=== PATIENT | female | born 1965 | race Caucasian/White ===

== ENCOUNTER 2017-06-09 02:57 | Emergency (ER) | payer MEDICAID ==
[~2017-06-09] VITALS: Ht 157.5 cm; Wt 110.5 kg
[~2017-06-09 02:57] MED LIST: ALBU18HF2 INH; BENZ-16 PO; GUAI10SY2 PO
[2017-06-09] MEDS ORDERED: normal saline 1000ml 1,000 ML IV ONE ×2 (03:08→04:45)
[2017-06-09 03:30] LABS: BASOPHILS % (AUTO) 0.4 % (0-1); EOSINOPHILS # (AUTO) 0.1 X10'3 (0-0.9); EOSINOPHILS % (AUTO) 0.9 % (0-6); HEMATOCRIT 32.8 % (35.0-45.0); LYMPHOCYTES # (AUTO) 0.6 X10'3 (1.1-4.8); MEAN CORPUSCULAR HEMOGLOBIN 28.1 PG (27.0-31.0); MEAN CORPUSCULAR HGB CONC 33.6 % (33.0-36.5); MEAN CORPUSCULAR VOLUME 83.6 FL (78-98); MEAN PLATELET VOLUME 10.2 FL (7.4-10.4); MONOCYTES # (AUTO) 0.4 X10'3 (0-0.9); MONOCYTES % (AUTO) 6.1 % (2-12); NEUTROPHILS # (AUTO) 5.6 X10'3 (1.8-7.7); NEUTROPHILS % (AUTO) 83.6 % (42-75); PLATELET COUNT 142 X10'3 (140-440); RED BLOOD COUNT 3.92 X10'6 (4.20-5.60); RED CELL DISTRIBUTION WIDTH 15.4 % (11.5-14.5); WHITE BLOOD COUNT 6.7 X10'3 (4.5-11.0)
[2017-06-09] MEDS ORDERED: insulin regular, human 10 units/0.1 ml syringe IV STA (03:30)
[2017-06-09 03:32] LABS: CLARITY,URINE Clear (Clear); COLOR,URINE Yellow (Yellow); GLUCOSE, URINE >=1000 mg/dl (Neg); KETONES,URINE Negative (Neg); LEUKOCYTE ESTERASE ,URINE Negative (Neg); NITRITES, URINE Negative (Neg); OCCULT BLOOD,URINE Negative (Neg); PROTEIN,URINE Trace mg/dl (Neg)
[2017-06-09 03:46] LABS: UA COLLECTION TYPE CLN CATCH MIDSTREAM
[2017-06-09 03:47] LABS: BACTERIA,URINE NONE SEEN /HPF (Neg); RBC,URINE NONE SEEN /HPF (0-2); SQUAMOUS EPITHELIAL CELL,UR FEW /LPF (FEW); WBC,URINE NONE SEEN /HPF (0-4)
[2017-06-09 03:59] LABS: ANION GAP 15 (8-16); CHLORIDE 97 MMOL/L (99-107); CREATININE 1.14 MG/DL (0.40-0.90); POTASSIUM 5.5 MMOL/L (3.5-5.1); SODIUM 135 MMOL/L (135-145); TOTAL CARBON DIOXIDE 23.2 MMOL/L (24-32); eGFR 50 ML/MIN
[2017-06-09 04:05] LABS: PARTIAL THROMBOPLASTIN TIME 23 SECONDS (22-32); PROTHROMBIN TIME 10.4 SECONDS (9.0-12.0)
[2017-06-09 04:19] LABS: ALANINE AMINOTRANSFERASE 129 U/L (12-78); ALBUMIN 3.3 G/DL (3.4-5.0); ALBUMIN/GLOBULIN RATIO 0.8 (1.1-1.5); ALKALINE PHOSPHATASE 119 IU/L (46-116); ASPARTATE AMINO TRANSFERASE 100 U/L (10-37); BILIRUBIN,TOTAL 0.6 MG/DL (0.1-1.0); BLOOD UREA NITROGEN 25 MG/DL (7-18); BUN/CREATININE RATIO 21.9 (6.6-38.0); CREATINE KINASE 102 U/L (26-192); MAGNESIUM 1.5 MG/DL (1.5-2.4); TOTAL PROTEIN 7.5 G/DL (6.4-8.2)
[2017-06-09 04:22] LABS: GLUCOSE 530 MG/DL (70-104)
[2017-06-09] MEDS ORDERED: Insulin Detemir pen SQ ONE (04:30)
[2017-06-09] MEDS ORDERED: normal saline 1000ML IV soln IVB ONE (04:30)
[2017-06-09] MEDS ORDERED: insulin regular, human 10 units/0.1 ml syringe IV ONE (04:30)
[2017-06-09] MEDS ORDERED: NPH, human insulin isophane inj. SQ ONE (04:30)
[2017-06-09] MEDS ORDERED: furosemide 20MG tablet PO ONE (08:40)
[2017-06-09 08:57] VITALS: BP 138/92
[2017-06-09] MEDS ORDERED: SIMV80TA2 PO (22:07)
[2017-06-09] MEDS ORDERED: ASPI81TA52 PO (22:07)
[2017-06-09] MEDS ORDERED: METF500T PO (22:07)
[2017-06-09] MEDS ORDERED: LEVO112T52 PO (22:07)
[2017-06-09] MEDS ORDERED: GLIP10TA11 PO (22:07)
[2017-06-09] MEDS ORDERED: INSU100I31 SQ (22:07)
[2017-06-09] MEDS ORDERED: CITA40TA22 PO (22:07)
[2017-06-09] MEDS ORDERED: ALOG25TA2 PO (22:07)
[2017-06-09] MEDS ORDERED: METO25TA6 PO (22:07)
[2017-06-09] MEDS ORDERED: LOSA25TA96 PO (22:07)
== END 2017-06-09 09:34 | disposition home or self-care (01) ==
LOC: ER 02:59
DX: I47.1 Supraventricular tachycardia (principal); E11.65 Type 2 diabetes mellitus with hyperglycemia; I38 Endocarditis, valve unspecified; I49.9 Cardiac arrhythmia, unspecified; E78.00 Pure hypercholesterolemia, unspecified; I10 Essential (primary) hypertension; Z79.899 Other long term (current) drug therapy
CPT/HCPCS: 36415; 71045; 80053; 81001; 82550; 82948; 83735; 83874; 83880; 84484; 85025; 85610; 85730; 93306; 96361; 96374; 96376; 99285; A4315; J7030

== ENCOUNTER 2017-06-09 17:54 | Inpatient (IN) | payer MEDICAID ==
[~2017-06-09] VITALS: Ht 162.6 cm; Wt 110.0 kg
[2017-06-09 18:51] LABS: BASOPHILS % (AUTO) 0.1 % (0-1); EOSINOPHILS # (AUTO) 0.1 X10'3 (0-0.9); EOSINOPHILS % (AUTO) 0.7 % (0-6); HEMATOCRIT 32.5 % (35.0-45.0); HEMOGLOBIN 11.2 g/dl (12.0-16.0); LYMPHOCYTES # (AUTO) 0.6 X10'3 (1.1-4.8); LYMPHOCYTES % (AUTO) 7.5 % (21-51); MEAN CORPUSCULAR HEMOGLOBIN 28.2 PG (27.0-31.0); MEAN CORPUSCULAR HGB CONC 34.3 % (33.0-36.5); MEAN CORPUSCULAR VOLUME 82.3 FL (78-98); MEAN PLATELET VOLUME 10.1 FL (7.4-10.4); MONOCYTES # (AUTO) 0.5 X10'3 (0-0.9); NEUTROPHILS # (AUTO) 6.4 X10'3 (1.8-7.7); NEUTROPHILS % (AUTO) 85.7 % (42-75); PLATELET COUNT 146 X10'3 (140-440); RED BLOOD COUNT 3.95 X10'6 (4.20-5.60); RED CELL DISTRIBUTION WIDTH 15.2 % (11.5-14.5); WHITE BLOOD COUNT 7.5 X10'3 (4.5-11.0)
[2017-06-09] MEDS ORDERED: ipratropium/albuterol 3ml nebule IH ONE (19:00)
[2017-06-09] MEDS ORDERED: albuterol 2.5 MG/3 ML nebule NEB ONE (19:00)
[2017-06-09] MEDS ORDERED: ipratropium 0.5 MG/2.5ML nebule IH ONE (19:00)
[2017-06-09 19:03] LABS: PARTIAL THROMBOPLASTIN TIME 25 SECONDS (22-32); PROTHROMBIN TIME 10.7 SECONDS (9.0-12.0)
[2017-06-09 19:07] LABS: ALANINE AMINOTRANSFERASE 114 U/L (12-78); ALBUMIN 3.5 G/DL (3.4-5.0); ALBUMIN/GLOBULIN RATIO 0.8 (1.1-1.5); ALKALINE PHOSPHATASE 123 IU/L (46-116); ANION GAP 11 (8-16); ASPARTATE AMINO TRANSFERASE 69 U/L (10-37); BILIRUBIN,TOTAL 0.7 MG/DL (0.1-1.0); BLOOD UREA NITROGEN 21 MG/DL (7-18); BUN/CREATININE RATIO 17.5 (6.6-38.0); CALCIUM 8.1 MG/DL (8.5-10.1); CHLORIDE 97 MMOL/L (99-107); GLUCOSE 431 MG/DL (70-104); POTASSIUM 5.6 MMOL/L (3.5-5.1); SODIUM 132 MMOL/L (135-145); TOTAL CARBON DIOXIDE 24.3 MMOL/L (24-32); TOTAL PROTEIN 7.9 G/DL (6.4-8.2); eGFR 47 ML/MIN
[2017-06-09] MEDS ORDERED: albuterol 2.5 MG/3 ML nebule CONTNEB PRN (20:15)
[2017-06-09] MEDS ORDERED: nitroGLYCERIN 0.4mg SUBLingual tab SL PRN (20:20)
[2017-06-09] MEDS ORDERED: furosemide 10 MG/1 ML 10ml inj IV ONE (20:20)
[2017-06-09] MEDS ORDERED: METO25TA6 PO (22:07)
[2017-06-09] MEDS ORDERED: INSU100I31 SQ (22:07)
[2017-06-09] MEDS ORDERED: GLIP10TA11 PO (22:07)
[2017-06-09] MEDS ORDERED: LOSA25TA96 PO (22:07)
[2017-06-09] MEDS ORDERED: CITA40TA22 PO (22:07)
[2017-06-09] MEDS ORDERED: LEVO112T52 PO (22:07)
[2017-06-09] MEDS ORDERED: ASPI81TA52 PO (22:07)
[2017-06-09] MEDS ORDERED: METF500T PO (22:07)
[2017-06-09] MEDS ORDERED: ALOG25TA2 PO (22:07)
[2017-06-09] MEDS ORDERED: SIMV80TA2 PO (22:07)
[2017-06-10] MEDS ORDERED: mag hydrox/Alum hydrox/simeth 30ml oral suspension PO PRN (03:15)
[2017-06-10] MEDS ORDERED: magnesium hydroxide 30ml (MOM) UD suspension PO PRN (03:15)
[2017-06-10] MEDS ORDERED: acetaminophen 325mg tablet PO PRN (03:15)
[2017-06-10] MEDS ORDERED: ondansetron/PF 4mg/2ml inj IV PRN (03:15)
[2017-06-10 04:02] LABS: HEMOGLOBIN A1C 9.8 % (4.5-6.2)
[2017-06-10] MEDS: levoTHYROXINE 112mcg tablet PO SCH (07:05)
[2017-06-10] MEDS ORDERED: pneumococcal 23-VAL P-sac vacc 25 mcg/0.5ml vial IMVAC ONE (08:00)
[2017-06-10] MEDS ORDERED: glipizide 5mg tablet PO SCH (08:00)
[2017-06-10] MEDS: citalopram 20mg tablet PO SCH (08:32)
[2017-06-10] MEDS: losartan 25mg tablet PO SCH (08:33)
[2017-06-10] MEDS: aspirin 81mg tablet.DR PO SCH (08:33)
[2017-06-10] MEDS: metoprolol tartrate 25mg tablet PO SCH ×2 (08:34→20:33)
[2017-06-10] MEDS: heparin, porcine 5000 units/ml vial SQ SCH ×2 (08:36→20:34)
[2017-06-10] MEDS: furosemide 10 MG/1 ML 10ml inj IV SCH ×2 (08:40→20:34)
[2017-06-10] MEDS ORDERED: dextrose ORAL solution 15 GM/59 ML bottle PO PRN ×2 (14:30)
[2017-06-10] MEDS ORDERED: glucagon, human recombinant 1mg kit SUBCUT PRN (14:30)
[2017-06-10] MEDS ORDERED: MESSAGE TO PHARMACY PO ONE (14:30)
[2017-06-10] MEDS ORDERED: dextrose 50%-water 50ml dispensing syringe IV PRN ×2 (14:30)
[2017-06-10 15:00] VITALS: BP 145/84
[2017-06-10] MEDS: albuterol 2.5 MG/3 ML nebule NEB PRN ×2 (16:37→20:28)
[2017-06-10] MEDS: LORazepam 0.5 MG tablet PO PRN (16:58)
[2017-06-10 18:30] VITALS: BP 133/83
[2017-06-10] MEDS: insulin Lispro (HumaLOG) vial - multi-dose SQ SCH ×2 (19:41→21:44)
[2017-06-10] MEDS: atorvastatin 20mg tablet PO SCH (20:33)
[2017-06-10] MEDS ORDERED: insulin glargine (Lantus) pen - multi-dose SQ SCH (21:00)
[2017-06-10] MEDS ORDERED: diltiazem 5mg/ml 5ml inj. IV STA (21:26)
[2017-06-10] MEDS: diltiazem 30mg tablet PO SCH (21:38)
[2017-06-10] MEDS: insulin glargine (Lantus) pen - multi-dose SQ SCH (21:46)
[2017-06-10 22:30] VITALS: BP 111/71
[2017-06-11 02:00] VITALS: BP 109/67
[2017-06-11] MEDS: diltiazem 30mg tablet PO SCH ×4 (02:31→20:16)
[2017-06-11 05:16] LABS: BASOPHILS % (AUTO) 0.3 % (0-1); EOSINOPHILS # (AUTO) 0.2 X10'3 (0-0.9); EOSINOPHILS % (AUTO) 2.9 % (0-6); HEMATOCRIT 33.6 % (35.0-45.0); HEMOGLOBIN 11.5 g/dl (12.0-16.0); LYMPHOCYTES # (AUTO) 1.4 X10'3 (1.1-4.8); LYMPHOCYTES % (AUTO) 24.6 % (21-51); MEAN CORPUSCULAR HEMOGLOBIN 28.4 PG (27.0-31.0); MEAN CORPUSCULAR HGB CONC 34.4 % (33.0-36.5); MEAN CORPUSCULAR VOLUME 82.6 FL (78-98); MEAN PLATELET VOLUME 9.7 FL (7.4-10.4); MONOCYTES # (AUTO) 0.6 X10'3 (0-0.9); MONOCYTES % (AUTO) 10.6 % (2-12); NEUTROPHILS # (AUTO) 3.6 X10'3 (1.8-7.7); NEUTROPHILS % (AUTO) 61.6 % (42-75); PLATELET COUNT 146 X10'3 (140-440); RED BLOOD COUNT 4.07 X10'6 (4.20-5.60); RED CELL DISTRIBUTION WIDTH 15.5 % (11.5-14.5); WHITE BLOOD COUNT 5.9 X10'3 (4.5-11.0)
[2017-06-11 05:27] LABS: ALANINE AMINOTRANSFERASE 87 U/L (12-78); ALBUMIN 3.2 G/DL (3.4-5.0); ALBUMIN/GLOBULIN RATIO 0.7 (1.1-1.5); ALKALINE PHOSPHATASE 100 IU/L (46-116); ANION GAP 8 (8-16); ASPARTATE AMINO TRANSFERASE 45 U/L (10-37); BILIRUBIN,TOTAL 0.6 MG/DL (0.1-1.0); BLOOD UREA NITROGEN 29 MG/DL (7-18); BUN/CREATININE RATIO 23.4 (6.6-38.0); CALCIUM 8.6 MG/DL (8.5-10.1); CHLORIDE 99 MMOL/L (99-107); CHOL/HDL RATIO 3.4 (0.00-4.99); CHOLESTEROL 162 MG/DL (0-200); CREATININE 1.24 MG/DL (0.40-0.90); GLUCOSE 183 MG/DL (70-104); HDL CHOLESTEROL 47 MG/DL (35-60); LDL CHOLESTEROL 97 MG/DL (50-100); POTASSIUM 4.2 MMOL/L (3.5-5.1); SODIUM 140 MMOL/L (135-145); TOTAL CARBON DIOXIDE 33.4 MMOL/L (24-32); TOTAL PROTEIN 7.5 G/DL (6.4-8.2); TRIGLYCERIDES 134 MG/DL (20-135); eGFR 45 ML/MIN
[2017-06-11 06:00] VITALS: BP 102/67
[2017-06-11] MEDS: citalopram 20mg tablet PO SCH (07:34)
[2017-06-11] MEDS: levoTHYROXINE 112mcg tablet PO SCH (07:34)
[2017-06-11] MEDS: aspirin 81mg tablet.DR PO SCH (07:34)
[2017-06-11] MEDS: metoprolol tartrate 25mg tablet PO SCH ×2 (07:34→20:00)
[2017-06-11] MEDS: losartan 25mg tablet PO SCH (07:34)
[2017-06-11] MEDS: furosemide 10 MG/1 ML 10ml inj IV SCH ×2 (07:34→20:16)
[2017-06-11] MEDS: heparin, porcine 5000 units/ml vial SQ SCH ×2 (07:35→20:15)
[2017-06-11 11:00] VITALS: BP 112/75
[2017-06-11] MEDS: insulin Lispro (HumaLOG) vial - multi-dose SQ SCH (13:14)
[2017-06-11 15:00] VITALS: BP 107/69
[2017-06-11] MEDS ORDERED: HYDROcodone/acetaminophen 5mg/325mg tablet PO PRN (16:00)
[2017-06-11] MEDS: HYDROcodone/acetaminophen 5mg/325mg tablet PO PRN (16:39)
[2017-06-11 18:00] VITALS: BP 103/45
[2017-06-11] MEDS: atorvastatin 20mg tablet PO SCH (20:17)
[2017-06-11] MEDS: insulin glargine (Lantus) pen - multi-dose SQ SCH (20:19)
[2017-06-11] MEDS: LORazepam 0.5 MG tablet PO PRN (20:21)
[2017-06-11 22:00] VITALS: BP 104/57
[2017-06-12] VITALS (16 sets, daily range): BP systolic 91–124; BP diastolic 43–79
[2017-06-12] MEDS: diltiazem 30mg tablet PO SCH ×3 (02:20→14:07)
[2017-06-12 05:40] LABS: BASOPHILS % (AUTO) 0.4 % (0-1); EOSINOPHILS # (AUTO) 0.3 X10'3 (0-0.9); EOSINOPHILS % (AUTO) 4.5 % (0-6); HEMATOCRIT 34.7 % (35.0-45.0); HEMOGLOBIN 11.7 g/dl (12.0-16.0); LYMPHOCYTES # (AUTO) 1.7 X10'3 (1.1-4.8); LYMPHOCYTES % (AUTO) 27.4 % (21-51); MEAN CORPUSCULAR HEMOGLOBIN 27.9 PG (27.0-31.0); MEAN CORPUSCULAR HGB CONC 33.7 % (33.0-36.5); MEAN CORPUSCULAR VOLUME 82.7 FL (78-98); MEAN PLATELET VOLUME 9.3 FL (7.4-10.4); MONOCYTES # (AUTO) 0.7 X10'3 (0-0.9); NEUTROPHILS # (AUTO) 3.5 X10'3 (1.8-7.7); NEUTROPHILS % (AUTO) 56.7 % (42-75); PLATELET COUNT 165 X10'3 (140-440); WHITE BLOOD COUNT 6.1 X10'3 (4.5-11.0)
[2017-06-12 05:44] LABS: ALANINE AMINOTRANSFERASE 84 U/L (12-78); ALBUMIN 3.2 G/DL (3.4-5.0); ALBUMIN/GLOBULIN RATIO 0.7 (1.1-1.5); ALKALINE PHOSPHATASE 95 IU/L (46-116); ANION GAP 8 (8-16); ASPARTATE AMINO TRANSFERASE 43 U/L (10-37); BILIRUBIN,TOTAL 0.6 MG/DL (0.1-1.0); BLOOD UREA NITROGEN 38 MG/DL (7-18); BUN/CREATININE RATIO 31.9 (6.6-38.0); CALCIUM 8.6 MG/DL (8.5-10.1); CHLORIDE 99 MMOL/L (99-107); CREATININE 1.19 MG/DL (0.40-0.90); GLUCOSE 169 MG/DL (70-104); SODIUM 140 MMOL/L (135-145); TOTAL CARBON DIOXIDE 32.9 MMOL/L (24-32); TOTAL PROTEIN 7.6 G/DL (6.4-8.2); eGFR 47 ML/MIN
[2017-06-12] MEDS ORDERED: midazolam 2 mg/2 ml injection ONE (06:08)
[2017-06-12] MEDS ORDERED: fentaNYL/PF 50MCG/1 ML 2ML syringe ONE (06:08)
[2017-06-12] MEDS ORDERED: LIDOcaine 1%/PF (10mg/ml) 5ml vial ONE (06:09)
[2017-06-12] MEDS ORDERED: IOHEXOL 350 MG/ML 150 ML injection IV ONE (06:09)
[2017-06-12] MEDS: levoTHYROXINE 112mcg tablet PO SCH (07:57)
[2017-06-12] MEDS: heparin, porcine 5000 units/ml vial SQ SCH (07:57)
[2017-06-12] MEDS: aspirin 81mg tablet.DR PO SCH (07:59)
[2017-06-12] MEDS: citalopram 20mg tablet PO SCH (08:00)
[2017-06-12] MEDS: metoprolol tartrate 25mg tablet PO SCH ×2 (08:00→19:08)
[2017-06-12] MEDS: furosemide 10 MG/1 ML 10ml inj IV SCH (08:00)
[2017-06-12] MEDS: losartan 25mg tablet PO SCH (08:02)
[2017-06-12] MEDS: insulin Lispro (HumaLOG) vial - multi-dose SQ SCH ×3 (10:16→21:48)
[2017-06-12] MEDS ORDERED: digoxin 250mcg/ml 2ml ampule IV ONE (14:20)
[2017-06-12] MEDS ORDERED: diltiazem-D5W 125mg/125ml 125 ML IV SCH (17:20)
[2017-06-12] MEDS ORDERED: amiodarone 150mg/dext, iso-os 100 ML IV ONE (18:50)
[2017-06-12] MEDS: apixaban 5mg tablet PO SCH (20:00)
[2017-06-12] MEDS: atorvastatin 20mg tablet PO SCH (20:32)
[2017-06-12] MEDS: amiodarone/D5 450MG/250ML BAG 250 ML IV SCH (20:33)
[2017-06-12] MEDS: insulin glargine (Lantus) pen - multi-dose SQ SCH (21:48)
[2017-06-12] MEDS ORDERED: normal saline 500ml IV soln 500 ML IV ONE (23:25)
[2017-06-13] VITALS (10 sets, daily range): BP systolic 102–139; BP diastolic 61–105
[2017-06-13] MEDS ORDERED: diltiazem 5mg/ml 5ml inj. IV ONE (01:40)
[2017-06-13] MEDS: amiodarone/D5 450MG/250ML BAG 250 ML IV SCH (04:09)
[2017-06-13] MEDS: LORazepam 0.5 MG tablet PO PRN (04:11)
[2017-06-13 05:38] LABS: BASOPHILS % (AUTO) 0.5 % (0-1); EOSINOPHILS # (AUTO) 0.2 X10'3 (0-0.9); EOSINOPHILS % (AUTO) 2.9 % (0-6); HEMATOCRIT 40.1 % (35.0-45.0); HEMOGLOBIN 13.5 g/dl (12.0-16.0); LYMPHOCYTES # (AUTO) 2.2 X10'3 (1.1-4.8); LYMPHOCYTES % (AUTO) 26.9 % (21-51); MEAN CORPUSCULAR HEMOGLOBIN 27.7 PG (27.0-31.0); MEAN CORPUSCULAR HGB CONC 33.7 % (33.0-36.5); MEAN CORPUSCULAR VOLUME 82.1 FL (78-98); MEAN PLATELET VOLUME 10.1 FL (7.4-10.4); MONOCYTES # (AUTO) 0.6 X10'3 (0-0.9); MONOCYTES % (AUTO) 7.2 % (2-12); NEUTROPHILS # (AUTO) 5.1 X10'3 (1.8-7.7); NEUTROPHILS % (AUTO) 62.5 % (42-75); PLATELET COUNT 192 X10'3 (140-440); RED BLOOD COUNT 4.88 X10'6 (4.20-5.60); RED CELL DISTRIBUTION WIDTH 15.1 % (11.5-14.5); WHITE BLOOD COUNT 8.1 X10'3 (4.5-11.0)
[2017-06-13 05:55] LABS: ALANINE AMINOTRANSFERASE 69 U/L (12-78); ALBUMIN 3.2 G/DL (3.4-5.0); ALBUMIN/GLOBULIN RATIO 0.6 (1.1-1.5); ALKALINE PHOSPHATASE 96 IU/L (46-116); ANION GAP 10 (8-16); ASPARTATE AMINO TRANSFERASE 33 U/L (10-37); BILIRUBIN,TOTAL 0.5 MG/DL (0.1-1.0); BLOOD UREA NITROGEN 43 MG/DL (7-18); BUN/CREATININE RATIO 37.7 (6.6-38.0); CALCIUM 8.8 MG/DL (8.5-10.1); CHLORIDE 98 MMOL/L (99-107); CREATININE 1.14 MG/DL (0.40-0.90); GLUCOSE 299 MG/DL (70-104); POTASSIUM 4.3 MMOL/L (3.5-5.1); SODIUM 136 MMOL/L (135-145); TOTAL CARBON DIOXIDE 28.3 MMOL/L (24-32); TOTAL PROTEIN 8.5 G/DL (6.4-8.2); eGFR 50 ML/MIN
[2017-06-13] MEDS: apixaban 5mg tablet PO SCH ×2 (07:28→19:18)
[2017-06-13] MEDS: aspirin 81mg tablet.DR PO SCH (07:29)
[2017-06-13] MEDS: levoTHYROXINE 112mcg tablet PO SCH (07:29)
[2017-06-13] MEDS: metoprolol tartrate 25mg tablet PO SCH (07:29)
[2017-06-13] MEDS: citalopram 20mg tablet PO SCH (07:29)
[2017-06-13] MEDS ORDERED: metoprolol tartrate 1mg/ml inj IV ONE (07:55)
[2017-06-13] MEDS: insulin Lispro (HumaLOG) vial - multi-dose SQ SCH ×3 (08:41→19:21)
[2017-06-13] MEDS ORDERED: digoxin 250mcg/ml 2ml ampule IV ONE (10:50)
[2017-06-13] MEDS: diltiazem 30mg tablet PO SCH ×2 (13:15→19:17)
[2017-06-13] MEDS: HYDROcodone/acetaminophen 5mg/325mg tablet PO PRN (19:23)
[2017-06-13] MEDS: carVEDilol 12.5mg tablet PO SCH (21:45)
[2017-06-13] MEDS: atorvastatin 20mg tablet PO SCH (21:51)
[2017-06-13] MEDS: insulin glargine (Lantus) pen - multi-dose SQ SCH (21:55)
[2017-06-14] MEDS: diltiazem 30mg tablet PO SCH (02:50)
[2017-06-14 03:00] VITALS: BP 137/77
[2017-06-14 05:36] LABS: BASOPHILS % (AUTO) 0.4 % (0-1); EOSINOPHILS # (AUTO) 0.2 X10'3 (0-0.9); EOSINOPHILS % (AUTO) 2.6 % (0-6); HEMATOCRIT 33.9 % (35.0-45.0); HEMOGLOBIN 11.5 g/dl (12.0-16.0); LYMPHOCYTES # (AUTO) 1.8 X10'3 (1.1-4.8); LYMPHOCYTES % (AUTO) 21.6 % (21-51); MEAN CORPUSCULAR HGB CONC 33.9 % (33.0-36.5); MEAN CORPUSCULAR VOLUME 82.8 FL (78-98); MEAN PLATELET VOLUME 9.7 FL (7.4-10.4); MONOCYTES # (AUTO) 0.6 X10'3 (0-0.9); MONOCYTES % (AUTO) 6.9 % (2-12); NEUTROPHILS # (AUTO) 5.8 X10'3 (1.8-7.7); NEUTROPHILS % (AUTO) 68.5 % (42-75); PLATELET COUNT 172 X10'3 (140-440); RED CELL DISTRIBUTION WIDTH 15.1 % (11.5-14.5); WHITE BLOOD COUNT 8.5 X10'3 (4.5-11.0)
[2017-06-14 06:00] VITALS: BP 123/70
[2017-06-14 06:20] LABS: ALANINE AMINOTRANSFERASE 57 U/L (12-78); ALBUMIN/GLOBULIN RATIO 0.7 (1.1-1.5); ALKALINE PHOSPHATASE 82 IU/L (46-116); ANION GAP 8 (8-16); ASPARTATE AMINO TRANSFERASE 28 U/L (10-37); BILIRUBIN,TOTAL 0.5 MG/DL (0.1-1.0); BLOOD UREA NITROGEN 40 MG/DL (7-18); BUN/CREATININE RATIO 33.9 (6.6-38.0); CALCIUM 8.5 MG/DL (8.5-10.1); CHLORIDE 99 MMOL/L (99-107); CREATININE 1.18 MG/DL (0.40-0.90); GLUCOSE 217 MG/DL (70-104); POTASSIUM 4.6 MMOL/L (3.5-5.1); SODIUM 137 MMOL/L (135-145); TOTAL CARBON DIOXIDE 30.2 MMOL/L (24-32); TOTAL PROTEIN 7.4 G/DL (6.4-8.2); eGFR 48 ML/MIN
[2017-06-14] MEDS: levoTHYROXINE 112mcg tablet PO SCH (07:09)
[2017-06-14] MEDS: aspirin 81mg tablet.DR PO SCH (07:10)
[2017-06-14] MEDS: citalopram 20mg tablet PO SCH (07:10)
[2017-06-14] MEDS: apixaban 5mg tablet PO SCH ×2 (07:10→20:38)
[2017-06-14] MEDS: carVEDilol 12.5mg tablet PO SCH ×2 (07:10→20:36)
[2017-06-14] MEDS ORDERED: losartan 25mg tablet PO SCH ×2 (08:00→21:00)
[2017-06-14] MEDS ORDERED: amiodarone 150mg/dext, iso-os 100 ML IV ONE ×2 (08:20)
[2017-06-14] MEDS: insulin Lispro (HumaLOG) vial - multi-dose SQ SCH ×3 (08:57→23:00)
[2017-06-14] MEDS: amiodarone 200mg tablet PO SCH ×3 (09:05→20:36)
[2017-06-14] MEDS: furosemide 20MG tablet PO SCH (10:26)
[2017-06-14 11:00] VITALS: BP 136/80
[2017-06-14] MEDS ORDERED: amiodarone 200mg tablet PO ONE (13:45)
[2017-06-14 15:00] VITALS: BP 125/84
[2017-06-14] MEDS ORDERED: atorvastatin 10mg tablet PO SCH (17:37)
[2017-06-14] MEDS ORDERED: amiodarone/D5 450MG/250ML BAG 250 ML IV SCH (17:40)
[2017-06-14 18:00] VITALS: BP 123/74
[2017-06-14 22:00] VITALS: BP 117/64
[2017-06-14] MEDS: insulin glargine (Lantus) pen - multi-dose SQ SCH (22:58)
[2017-06-15 02:00] VITALS: BP 117/66
[2017-06-15 05:48] LABS: BASOPHILS % (AUTO) 0.3 % (0-1); EOSINOPHILS # (AUTO) 0.3 X10'3 (0-0.9); EOSINOPHILS % (AUTO) 3.7 % (0-6); HEMATOCRIT 33.8 % (35.0-45.0); HEMOGLOBIN 11.4 g/dl (12.0-16.0); LYMPHOCYTES # (AUTO) 1.8 X10'3 (1.1-4.8); LYMPHOCYTES % (AUTO) 23.6 % (21-51); MEAN CORPUSCULAR HGB CONC 33.8 % (33.0-36.5); MEAN CORPUSCULAR VOLUME 82.9 FL (78-98); MEAN PLATELET VOLUME 9.6 FL (7.4-10.4); MONOCYTES # (AUTO) 0.6 X10'3 (0-0.9); MONOCYTES % (AUTO) 7.8 % (2-12); NEUTROPHILS % (AUTO) 64.6 % (42-75); PLATELET COUNT 162 X10'3 (140-440); RED BLOOD COUNT 4.08 X10'6 (4.20-5.60); RED CELL DISTRIBUTION WIDTH 15.3 % (11.5-14.5); WHITE BLOOD COUNT 7.8 X10'3 (4.5-11.0)
[2017-06-15 06:00] VITALS: BP 114/53
[2017-06-15 06:16] LABS: ALANINE AMINOTRANSFERASE 51 U/L (12-78); ALBUMIN 2.9 G/DL (3.4-5.0); ALBUMIN/GLOBULIN RATIO 0.6 (1.1-1.5); ALKALINE PHOSPHATASE 87 IU/L (46-116); ANION GAP 6 (8-16); ASPARTATE AMINO TRANSFERASE 29 U/L (10-37); BILIRUBIN,TOTAL 0.5 MG/DL (0.1-1.0); BLOOD UREA NITROGEN 26 MG/DL (7-18); BUN/CREATININE RATIO 24.8 (6.6-38.0); CALCIUM 8.5 MG/DL (8.5-10.1); CHLORIDE 101 MMOL/L (99-107); CREATININE 1.05 MG/DL (0.40-0.90); GLUCOSE 194 MG/DL (70-104); POTASSIUM 4.3 MMOL/L (3.5-5.1); SODIUM 137 MMOL/L (135-145); TOTAL CARBON DIOXIDE 29.8 MMOL/L (24-32); TOTAL PROTEIN 7.4 G/DL (6.4-8.2); eGFR 55 ML/MIN
[2017-06-15] MEDS: amiodarone 200mg tablet PO SCH (07:12)
[2017-06-15] MEDS: apixaban 5mg tablet PO SCH (07:13)
[2017-06-15] MEDS: citalopram 20mg tablet PO SCH (07:13)
[2017-06-15] MEDS: levoTHYROXINE 112mcg tablet PO SCH (07:13)
[2017-06-15] MEDS: carVEDilol 12.5mg tablet PO SCH (07:13)
[2017-06-15] MEDS: furosemide 20MG tablet PO SCH (07:13)
[2017-06-15] MEDS: aspirin 81mg tablet.DR PO SCH (07:13)
[2017-06-15] MEDS: insulin Lispro (HumaLOG) vial - multi-dose SQ SCH ×2 (09:45→13:53)
[2017-06-15 11:00] VITALS: BP 125/75
[2017-06-15] MEDS ORDERED: CARV-50 PO (11:52)
[2017-06-15] MEDS ORDERED: FURO20TA4 PO (11:52)
[2017-06-15] MEDS ORDERED: APIX5TAB3 PO (11:52)
[2017-06-15] MEDS ORDERED: AMIO200T57 PO (14:06)
== END 2017-06-15 15:30 | disposition home health service (06) | DRG 192 ==
LOC: ER 17:55 → ED HOLD 06-10 03:11 → PCU 3S 06-10 10:49
PROVIDERS: ADMIT Internal Medicine; ATTEND Internal Medicine
PROC: 4A023N8 Measurement of Cardiac Sampling and Pressure, Bilateral, Percutaneous Approach (ICD-10-PCS; principal; 2017-06-12)
PROC: B2111ZZ Fluoroscopy of Multiple Coronary Arteries using Low Osmolar Contrast (ICD-10-PCS; 2017-06-12)
PROC: B2151ZZ Fluoroscopy of Left Heart using Low Osmolar Contrast (ICD-10-PCS; 2017-06-12)
DX: I11.0 Hypertensive heart disease with heart failure (principal); J96.01 Acute respiratory failure with hypoxia; I95.9 Hypotension, unspecified; E11.649 Type 2 diabetes mellitus with hypoglycemia without coma; I42.9 Cardiomyopathy, unspecified; I48.92 Unspecified atrial flutter; I47.1 Supraventricular tachycardia; I48.0 Paroxysmal atrial fibrillation; I50.23 Acute on chronic systolic (congestive) heart failure; Z68.41 Body mass index [BMI] 40.0-44.9, adult; Z79.01 Long term (current) use of anticoagulants; J44.9 Chronic obstructive pulmonary disease, unspecified; E66.01 Morbid (severe) obesity due to excess calories; I08.3 Combined rheumatic disorders of mitral, aortic and tricuspid valves; E78.5 Hyperlipidemia, unspecified; E11.9 Type 2 diabetes mellitus without complications; F41.9 Anxiety disorder, unspecified; E03.9 Hypothyroidism, unspecified; E78.00 Pure hypercholesterolemia, unspecified; G89.29 Other chronic pain; M19.90 Unspecified osteoarthritis, unspecified site; J06.9 Acute upper respiratory infection, unspecified; Z79.899 Other long term (current) drug therapy; Z79.82 Long term (current) use of aspirin; Z79.84 Long term (current) use of oral hypoglycemic drugs; Z82.49 Family history of ischemic heart disease and other diseases of the circulatory system; Z83.3 Family history of diabetes mellitus; Z98.891 History of uterine scar from previous surgery
CPT/HCPCS: 36415; 71045; 80053; 80061; 80162; 82948; 83036; 83605; 83880; 84443; 84484; 85025; 85610; 85730; 87040; 87070; 90732; 93005; 93460; 94640; 94760; 96374; 97116; 97162; 97530; 99152; 99153; 99285; A4620; A6257; C1769; J0282; J1160; J1644; J1815; J1940; J2001; J2250; J3010; J3490; J7030; Q9967

== ENCOUNTER 2017-10-28 13:53 | Day surgery (SDC) | payer MEDICAID ==
[~2017-10-28] VITALS: Ht 157.5 cm; Wt 116.7 kg
[2017-10-28] VITALS (7 sets, daily range): BP systolic 97–121; BP diastolic 41–68
[~2017-10-28 13:53] MED LIST changes: -ALBU18HF2 INH; +ALOG25TA2 PO; +AMIO200T57 PO; +APIX5TAB3 PO; +ASPI81TA52 PO; -BENZ-16 PO; +CARV-50 PO; +CITA40TA22 PO; +FURO20TA4 PO; +GLIP10TA11 PO; -GUAI10SY2 PO; +INSU100I31 SQ; +LEVO112T52 PO; +LOSA25TA96 PO; +METF500T PO; +SIMV80TA2 PO
[2017-10-28] MEDS ORDERED: LORazepam 0.5 MG tablet PO ONE (14:25)
[2017-10-28] MEDS ORDERED: diphenhydrAMINE 25mg capsule PO ONE (14:30)
[2017-10-28 15:01] LABS: BASOPHILS % (AUTO) 0.6 % (0-1); EOSINOPHILS # (AUTO) 0.2 X10'3 (0-0.9); EOSINOPHILS % (AUTO) 2.9 % (0-6); HEMATOCRIT 30.8 % (35.0-45.0); HEMOGLOBIN 10.6 g/dl (12.0-16.0); LYMPHOCYTES # (AUTO) 1.2 X10'3 (1.1-4.8); LYMPHOCYTES % (AUTO) 16.9 % (21-51); MEAN CORPUSCULAR HEMOGLOBIN 29.3 PG (27.0-31.0); MEAN CORPUSCULAR HGB CONC 34.3 % (33.0-36.5); MEAN CORPUSCULAR VOLUME 85.4 FL (78-98); MEAN PLATELET VOLUME 9.4 FL (7.4-10.4); MONOCYTES # (AUTO) 0.5 X10'3 (0-0.9); NEUTROPHILS % (AUTO) 72.6 % (42-75); PLATELET COUNT 160 X10'3 (140-440); RED BLOOD COUNT 3.61 X10'6 (4.20-5.60); RED CELL DISTRIBUTION WIDTH 13.8 % (11.5-14.5); WHITE BLOOD COUNT 6.9 X10'3 (4.5-11.0)
[2017-10-28] MEDS ORDERED: CARV-50 PO (15:03)
[2017-10-28] MEDS ORDERED: AMIO200T57 PO (15:03)
[2017-10-28] MEDS ORDERED: FURO-150 PO (15:03)
[2017-10-28] MEDS ORDERED: APIX5TAB3 PO (15:03)
[2017-10-28 15:11] LABS: ALBUMIN 3.4 G/DL (3.4-5.0); ANION GAP 9 (8-16); BLOOD UREA NITROGEN 36 MG/DL (7-18); BUN/CREATININE RATIO 19.8 (6.6-38.0); CALCIUM 8.7 MG/DL (8.5-10.1); CHLORIDE 103 MMOL/L (99-107); CREATININE 1.82 MG/DL (0.40-0.90); GLUCOSE 185 MG/DL (70-104); POTASSIUM 4.7 MMOL/L (3.5-5.1); SODIUM 136 MMOL/L (135-145); TOTAL CARBON DIOXIDE 24.5 MMOL/L (24-32); eGFR 29 ML/MIN
[2017-10-28 15:12] LABS: PARTIAL THROMBOPLASTIN TIME 24 SECONDS (22-32); PROTHROMBIN TIME 10.4 SECONDS (9.0-12.0)
[2017-10-28] MEDS ORDERED: ceFAZolin 1GM/D5W- ADD-VANTAGE 50 ML IV SCH (16:00)
[2017-10-28] MEDS ORDERED: ceFAZolin 1GM/D5W- ADD-VANTAGE 50 ML IV ONE (16:24)
[2017-10-28] MEDS ORDERED: midazolam 2 mg/2 ml injection ONE (16:24)
[2017-10-28] MEDS ORDERED: LIDOcaine 1% w/EPI 1:100,000 30ml vial (MDV) ONE (16:25)
[2017-10-28] MEDS ORDERED: ceFAZolin 1000mg inj ONE (16:25)
[2017-10-28] MEDS ORDERED: fentaNYL/PF 50MCG/1 ML 2ML syringe ONE (16:25)
[2017-10-28] MEDS ORDERED: normal saline 1000ml 1,000 ML IV SCH (18:10)
== END 2017-10-28 19:55 | disposition home or self-care (01) ==
LOC: SSTAY O 13:53
PROVIDERS: ATTEND Internal Medicine Interventional Cardiology
DX: I11.0 Hypertensive heart disease with heart failure (principal); I50.23 Acute on chronic systolic (congestive) heart failure; I42.9 Cardiomyopathy, unspecified; I25.10 Atherosclerotic heart disease of native coronary artery without angina pectoris; E11.9 Type 2 diabetes mellitus without complications; I48.0 Paroxysmal atrial fibrillation; G47.33 Obstructive sleep apnea (adult) (pediatric); E78.00 Pure hypercholesterolemia, unspecified; E03.9 Hypothyroidism, unspecified; F32.9 Major depressive disorder, single episode, unspecified; M19.90 Unspecified osteoarthritis, unspecified site; F41.9 Anxiety disorder, unspecified; J44.9 Chronic obstructive pulmonary disease, unspecified; E66.01 Morbid (severe) obesity due to excess calories; Z68.41 Body mass index [BMI] 40.0-44.9, adult; Z79.899 Other long term (current) drug therapy; Z79.82 Long term (current) use of aspirin; Z79.84 Long term (current) use of oral hypoglycemic drugs; Z79.4 Long term (current) use of insulin; Z98.51 Tubal ligation status
CPT/HCPCS: 33249; 36415; 80048; 82948; 85025; 85610; 85730; 93005; 99152; 99153; A4565; C1721; C1895; J0690; J2250; J3010; J3490; J7030; Q0163; A4620; C1898

== ENCOUNTER 2018-03-26 11:55 | Outpatient (CLI) | payer MEDICAID ==
[~2018-03-26 11:55] MED LIST changes: +AMIO200T54 PO; -AMIO200T57 PO; +FURO-150 PO; -FURO20TA4 PO
[2018-03-26 12:27] LABS: BASOPHILS % (AUTO) 0.7 % (0-1); EOSINOPHILS # (AUTO) 0.2 X10'3 (0-0.9); EOSINOPHILS % (AUTO) 4.1 % (0-6); HEMATOCRIT 33.2 % (35.0-45.0); HEMOGLOBIN 10.9 g/dl (12.0-16.0); LYMPHOCYTES # (AUTO) 0.8 X10'3 (1.1-4.8); LYMPHOCYTES % (AUTO) 16.5 % (21-51); MEAN PLATELET VOLUME 9.7 FL (7.4-10.4); MONOCYTES # (AUTO) 0.3 X10'3 (0-0.9); MONOCYTES % (AUTO) 7.1 % (2-12); NEUTROPHILS # (AUTO) 3.4 X10'3 (1.8-7.7); NEUTROPHILS % (AUTO) 71.6 % (42-75); PLATELET COUNT 145 X10'3 (140-440); RED CELL DISTRIBUTION WIDTH 14.2 % (11.5-14.5); WHITE BLOOD COUNT 4.7 X10'3 (4.5-11.0)
[2018-03-26 12:38] LABS: ALBUMIN 3.5 G/DL (3.4-5.0); ANION GAP 8 (8-16); BLOOD UREA NITROGEN 28 MG/DL (7-18); BUN/CREATININE RATIO 17.1 (6.6-38.0); CALCIUM 8.8 MG/DL (8.5-10.1); CHLORIDE 102 MMOL/L (99-107); CREATININE 1.64 MG/DL (0.40-0.90); GLUCOSE 351 MG/DL (70-104); SODIUM 138 MMOL/L (135-145); TOTAL CARBON DIOXIDE 28.5 MMOL/L (24-32); eGFR 33 ML/MIN
[2018-03-26 12:40] LABS: HEMOGLOBIN A1C 10.9 % (4.5-6.2)
== END 2018-03-26 23:59 | disposition home or self-care (01) ==
LOC: LAB 11:55
PROVIDERS: ATTEND Thoracic Surgery (Cardiothoracic Vascular Surgery)
DX: I35.0 Nonrheumatic aortic (valve) stenosis (principal); I11.0 Hypertensive heart disease with heart failure; I50.9 Heart failure, unspecified; E11.9 Type 2 diabetes mellitus without complications; Z79.82 Long term (current) use of aspirin; Z79.84 Long term (current) use of oral hypoglycemic drugs; Z79.4 Long term (current) use of insulin
CPT/HCPCS: 36415; 80048; 83036; 85025